=== PATIENT | female | born 1960 | race Caucasian/White ===

== ENCOUNTER → 2021-01-22 12:43 | Outpatient (CLI) | payer OTHER, SELFPAY | PROVIDERS: Visit Provider Physician Assistant | DX: J02.9 Acute pharyngitis, unspecified (principal) | CPT/HCPCS: 87070 ==

== ENCOUNTER 2023-02-10 23:37 | Observation (INO) | payer OTHER, SELFPAY ==
[2023-02-10 23:40] VITALS: BP 119/67; PULSE 106; O2SAT 96
[2023-02-10 23:43] VITALS: BP 119/67; PULSE 105; RESP 18; TEMP 36.7; O2SAT 96; BMI 36.6
[2023-02-10] MEDS: SODIUM CHLORIDE 0.9% 1,000 ML 1000 ML IV (23:48)
[2023-02-10 23:57] LABS: Add Manual Diff / Slide Review NO; Basophils Absolute Auto 0 /uL (0-100); Basophils Percent Auto 0.3 % (0-2); Eosinophils Absolute Auto 100 /uL (0-450); Eosinophils Percent Auto 0.7 % (2-4); Hematocrit 36.4 % (36-46); Hemoglobin 12.5 g/dL (12.0-16.0); Lymphocytes Absolute Auto 4700 /uL (1100-4500); Lymphocytes Percent Auto 41.6 % (25-40); Mean Corpuscular HGB Conc 34.4 % (30-36); Mean Corpuscular Hemoglobin 29.4 PG (26-34); Mean Corpuscular Volume 85.4 fL (80-100); Monocytes Absolute Auto 1100 /uL (0-900); Monocytes Percent Auto 9.9 % (3-14); Neutrophils Absolute Auto 5300 /uL (1500-7000); Neutrophils Percent Auto 47.5 % (50-75); Platelet Count 343 X10^3/uL (150-400); Red Blood Cell Count 4.26 X10^6/uL (4.0-5.2); Red Cell Distribution Width 13.6 % (11.6-14.8); White Blood Cell Count 11.2 X10^3/uL (4.5-11.0)
[2023-02-11] VITALS (28 sets, daily range): BP systolic 83–158; BP diastolic 49–93; PULSE 104–129; RESP 9–26; TEMP 35.9–37.6; O2SAT 94–100; BMI 37.7
[2023-02-11 00:11] LABS: Alanine Aminotransferase 21 IU/L (<35); Albumin Globulin Ratio 1.5 (1.0-2.8); Alkaline Phosphatase 50 U/L (38-126); Aspartate Aminotransferase 22 IU/L (14-36); BUN Creatinine Ratio 51.8 (6-22); Bilirubin Total 0.3 mg/dL (0.2-1.3); Blood Urea Nitrogen 29 mg/dL (7-17); Calcium 9.4 mg/dL (8.4-10.2); Carbon Dioxide 26 mmol/L (22-32); Chloride 106 mmol/L (98-107); Creatine Kinase 28 U/L (30-135); Estimated Glomerular Filt Rate > 60 mL/min (>60); Ethanol (ETOH) < 10 mg/dL; Globulin 2.6 g/dL (1.7-4.1); Glucose 102 mg/dL (80-110); HEMOLYSIS 16 (0-50); Lipase 61 U/L (23-300); Potassium 3.5 mmol/L (3.4-5.1); Sodium 140 mmol/L (137-145); Total Protein 6.6 g/dL (6.3-8.2)
--- NOTE | 2023-02-11 00:16 | ED_ITS ---
HPI - General Adult General Chief complaint: Syncope Stated complaint: syncope Time Seen by Provider: 02/10/23 23:44 Source: patient, family and EMS Mode of arrival: EMS Limitations: no limitations History of Present Illness HPI narrative: Patient is a 62-year-old female who was brought in by EMS for evaluation of a syncopal episode. The episode that brought her into the emergency department happened just prior to arrival. She states she was sitting on the toilet. She had a bowel movement. She stood up and went and washed her hands. She states she started to feel like she was getting lightheaded and was going to pass out. She sat herself down onto ground. She did not pass out. She did not hurt herse lf. She had no chest pain or shortness of breath or lightheadedness. She stated that she called for her who came to help her off the floor. She then walked down the hallway to go to the bedroom when apparently she had a full syncopal episode. She was helped to the ground by her . Again she stated that she did not feel like she was having chest pain shortness of breath nor lightheadedness or headaches. She states she woke up and hurt her talking on the phone. When EMS arrived they stated that they found her hypotensive with systolic in the 80s. They did start her on fluids. By the time she arrived here in the emergency department she stated that she was feeling quite normal. She did admit that she had another episode earlier in the day where she felt like she was going to pass out. She was able to make it to the bed for she actually lost consciousness. She laid in the bed for awhile and then felt much better afterwards. This has never happened to her in the past. She stated that today she did have several episodes of black colored stools. She is never had black-colored stools before. She is not vomiting. No blood in her urine. She denies the use of alcohol. Does not use nonsteroidal anti- inflammatories. Is not on anticoagulation. She has had a colonoscopy in the past. That was within the past 5 years. She was told to return in 5 years for repeat colonoscopy. Related Data Home Medications Medication Instructions Recorded Confirmed ascorbic acid (vitamin C) 500 mg 500 mg PO QDAY ##0 09/18/17 11/02/21 tablet aspirin 81 mg tablet,delayed 81 mg PO QDAY ##0 05/18/17 07/02/21 release calcium citrate 315 mg 1 tab PO ##0 05/18/17 07/02/21 calcium-vitamin D3 6.25 mcg (250 unit) tablet (Citracal + Vitamin D Maximum) cholecalciferol (vitamin D3) 50 1 tab PO QDAY ##0 05/18/17 07/02/21 mcg (2,000 unit) tablet (Vitamin D3) multivitamin (Multiple Vitamins 1 tab PO QDAY ##0 05/18/17 07/02/21 tablet) valsartan 160 1 tab PO QDAY ##0 05/18/17 07/02/21 mg-hydrochlorothiazide 12.5 mg tablet sertraline 50 mg tablet 50 mg PO DAILY 01/22/21 07/02/21 Previous Rx's Medication Instructions Recorded magic mouthwash 10 ml PO TID aphthous ulcers #150 01/22/21 mL Allergies Allergy/AdvReac Type Severity Reaction Status Date / Time Sulfa (Sulfonamide Allergy Unknown Verified 02/11/23 02:49 Antibiotics) [SULFA (SULFONAMIDE ANTIBIOTICS)] Review of Systems Review of Systems ROS Unobtainable: All systems reviewed & are unremarkable except as noted in HPI and below Patient History Social History Smoking Status: Never smoker Smoking Status: Never smoker alcohol intake frequency: holidays/special occasions only Substance Use Type: does not use Exam Initial Vital Signs Initial Vital Signs: Vital Signs Temperature 98.1 F 02/10/23 23:43 Pulse Rate 105 H 02/10/23 23:43 Respiratory Rate 18 02/10/23 23:43 Blood Pressure 119/67 02/10/23 23:43 Pulse Oximetry 96 02/10/23 23:43 Oxygen Delivery Method Room Air 02/10/23 23:43 Const General: cooperative, comfortable and No ill appearing HENMT Head: normal to inspection and normocephalic Resp Effort & Inspection: normal respiratory effort Auscultation: clear to auscultation bilaterally Cardio Rate: tachycardic Rhythm: regular rhythm GI Inspection: normal to inspection and non-distended Palpation: soft and No tender Rectal Exam: heme positive stool Skin General: no rashes or lesions noted Neuro General: patient alert, patient awake, patient oriented x3 and moves all extremities Cognition: normal cognition Speech: speech normal Extrem General: normal to inspection and capillary refill normal Psych Appearance: grossly normal and well kempt Scores GCS Ulises coma scale eye opening: Spontaneous Ulises coma scale verbal response: Orientated Ulises coma scale motor response: Obey commands [place] coma scale total score: 15 Course Orders Ordered: ED Orders 02/10/23 23:40 Complete Blood Count AUTO DIFF Stat Comprehensive Metabolic Panel Stat Ethanol (ETOH) Stat Lipase Stat Troponin & CK Cardiac Panel Stat 02/10/23 23:45 EKG-12 Lead Stat 02/11/23 00:06 Magnesium Stat 02/11/23 00:38 EKG-12 Lead Stat 02/11/23 01:50 Hemoglobin and Hematocrit Stat Troponin & CK Cardiac Panel Stat 02/11/23 02:20 Type and Screen Stat 02/11/23 02:35 Consult to General Surgery Stat Acetaminophen (Acetaminophen 325 Mg Tablet) 650 mg PO Q6H PRN PRN Reason: Fever/Mild Pain (1-3) Dextrose/Sodium Chloride (Dextrose 5%-0.9% Ns) 1,000 mls @ 100 mls/hr IV CONT LEVY Naloxone HCl (Naloxone 0.4 Mg/Ml Vial) 0.2 mg IV Q2MIN PRN PRN Reason: Opiate Reversal Ondansetron HCl (Ondansetron 4 Mg/2 Ml Inj) 4 mg IV Q8HR PRN PRN Reason: Nausea And Vomiting Pantoprazole Sodium (Pantoprazole 40 Mg Vial) 40 mg IV BID LEVY Discontinued Medications Sodium Chloride (Normal Saline 0.9%) 1,000 mls @ 1,000 mls/hr IV BOLUS ONE Stop: 02/11/23 00:43 Last Infusion: 02/11/23 00:41 Dose: 0 mls/hr Documented By: Admin: 02/10/23 23:48 Dose: 1,000 mls/hr Documented By: CATHY Sodium Chloride (Normal Saline 0.9%) 1,000 mls @ 1,000 mls/hr IV BOLUS ONE Stop: 02/11/23 02:21 Last Infusion: 02/11/23 02:37 Dose: 0 mls/hr Documented By: Admin: 02/11/23 01:27 Dose: 1,000 mls/hr Documented By: CATHY Pantoprazole Sodium (Pantoprazole 40 Mg Vial) 40 mg IV NOW ONE Stop: 02/11/23 02:21 Last Admin: 02/11/23 02:48 Dose: 40 mg Documented By: CATHY Vital Signs Vital signs: Vital Signs - 8 hr 02/10/23 23:43 Temperature 98.1 F Pulse Rate 105 H Respiratory Rate 18 Blood Pressure 119/67 Pulse Oximetry 96 Oxygen Delivery Method Room Air Medical Decision Making Lab Data Lab results reviewed: Yes I reviewed the patient's lab results. 02/11/23 01:50 02/10/23 23:40 Labs: Lab Results 02/10/23 02/10/23 02/10/23 Range/Units 23:40 23:40 23:40 WBC 11.2 H (4.5-11.0) X10^3/uL RBC 4.26 (4.0-5.2) X10^6/uL Hgb 12.5 (12.0-16.0) g/dL Hct 36.4 (36-46) % MCV 85.4 (80-100) fL MCH 29.4 (26-34) PG MCHC 34.4 (30-36) % RDW 13.6 (11.6-14.8) % Plt Count 343 (150-400) X10^3/uL Neut % (Auto) 47.5 L (50-75) % Lymph % (Auto) 41.6 H (25-40) % [place] % (Auto) 9.9 (3-14) % Eos % (Auto) 0.7 L (2-4) % Baso % (Auto) 0.3 (0-2) % Neut # (Auto) 5300 (8675-9293) /uL Lymph # (Auto) 4700 H (0475-3753) /uL [place] # (Auto) 1100 H (0-900) /uL Eos # (Auto) 100 (0-450) /uL Baso # (Auto) 0 (0-100) /uL Sodium 140 (137-145) mmol/L Potassium 3.5 (3.4-5.1) mmol/L Chloride 106 (98-107) mmol/L Carbon Dioxide 26 (22-32) mmol/L BUN 29 H (7-17) mg/dL Creatinine 0.56 (0.52-1.04) mg/dL Estimated GFR > 60 (>60) mL/min BUN/Creatinine Ratio 51.8 H (6-22) Glucose 102 (80-110) mg/dL Calcium 9.4 (8.4-10.2) mg/dL Magnesium 2.0 (1.6-2.3) mg/dL Total Bilirubin 0.3 (0.2-1.3) mg/dL AST 22 (14-36) IU/L ALT 21 (<35) IU/L Alkaline Phosphatase 50 (38-126) U/L Total Creatine Kinase 28 L (30-135) U/L CK-MB (CK-2) TNP CK-MB (CK-2) Rel Index TNP Troponin I 0.013 (0.01-0.034) ng/mL Total Protein 6.6 (6.3-8.2) g/dL Albumin 4.0 (3.5-5.0) g/dL Globulin 2.6 (1.7-4.1) g/dL Albumin/Globulin Ratio 1.5 (1.0-2.8) Lipase 61 (23-300) U/L Ethyl Alcohol < 10 ( - 10) mg/dL Blood Type Antibody Screen 02/11/23 02/11/23 02/11/23 Range/Units 01:50 01:50 02:20 WBC (4.5-11.0) X10^3/uL RBC (4.0-5.2) X10^6/uL Hgb 9.9 L (12.0-16.0) g/dL Hct 29.0 L (36-46) % MCV (80-100) fL MCH (26-34) PG MCHC (30-36) % RDW (11.6-14.8) % Plt Count (150-400) X10^3/uL Neut % (Auto) (50-75) % Lymph % (Auto) (25-40) % [place] % (Auto) (3-14) % Eos % (Auto) (2-4) % Baso % (Auto) (0-2) % Neut # (Auto) (1620-4469) /uL Lymph # (Auto) (6878-7115) /uL [place] # (Auto) (0-900) /uL Eos # (Auto) (0-450) /uL Baso # (Auto) (0-100) /uL Sodium (137-145) mmol/L Potassium (3.4-5.1) mmol/L Chloride (98-107) mmol/L Carbon Dioxide (22-32) mmol/L BUN (7-17) mg/dL Creatinine (0.52-1.04) mg/dL Estimated GFR (>60) mL/min BUN/Creatinine Ratio (6-22) Glucose (80-110) mg/dL Calcium (8.4-10.2) mg/dL Magnesium (1.6-2.3) mg/dL Total Bilirubin (0.2-1.3) mg/dL AST (14-36) IU/L ALT (<35) IU/L Alkaline Phosphatase (38-126) U/L Total Creatine Kinase 21 L (30-135) U/L CK-MB (CK-2) TNP CK-MB (CK-2) Rel Index TNP Troponin I 0.013 (0.01-0.034) ng/mL Total Protein (6.3-8.2) g/dL Albumin (3.5-5.0) g/dL Globulin (1.7-4.1) g/dL Albumin/Globulin Ratio (1.0-2.8) Lipase (23-300) U/L Ethyl Alcohol ( - 10) mg/dL Blood Type O Positive Antibody Screen Negative Point of Care Testing Stool Occult Blood Positive Glucose POC 120 Point of care testing: Point of Care Testing Stool Occult Blood Positive Glucose POC 120 ECG Data Attestation: I personally reviewed and interpreted this ECG as follows: Interpretation: Sinus tachycardia Ventricular rate of 110 Normal axis Normal QRS QTC [address] T wave changes Repeat EKG Sinus tachycardia Ventricular rate 114 Normal axis Normal QRS QTC [address] T wave changes MDM Narrative Medical decision making narrative: Patient was tachycardic upon arrival. This is sinus tachycardia. She was not hypotensive. She was feeling rather normal upon arrival here to the ER. Initial H&H is unremarkable. Repeat H&H does show a drop. She did receive 1 L of fluids during this time. She was Hemoccult positive. Initial EKG shows sinus tachycardia and a prolonged QTC of 633. Patient is not on any medications that would prolong her QTC. Repeat EKG was performed in the repeat QTC was 463. Patient remained persistently tachycardic. She was alert oriented. I have low suspicion that this was seizure. Also low suspicion for CVA/TIA or ACS. I did discuss the case with Dr. Prieto on-call with General surgery who asked the patient be admitted to the medicine service and she would consult for upper endoscopy. I then discussed the case with Dr. Campo hospitalist on-call who will admit for further evaluation and treatment. I did discuss the need for admission with the patient. She expressed understanding and agreement as well. Patient's was at bedside and did provide some of the HPI. Discharge Plan Departure Patient Disposition: Admitted As Inpatient Clinical Impression: Acute GI bleeding, Syncope, Tachycardia Admit Date/Time: 02/11/23 02:55 Admit Provider: Mikhail Campo
[2023-02-11 00:22] LABS: Troponin I 0.013 ng/mL (0.01-0.034)
[2023-02-11] MEDS: SODIUM CHLORIDE 0.9% 1,000 ML 1000 ML IV (01:27)
[2023-02-11 02:01] LABS: Hemoglobin 9.9 g/dL (12.0-16.0)
[2023-02-11 02:11] LABS: Creatine Kinase 21 U/L (30-135)
[2023-02-11 02:23] LABS: Troponin I 0.013 ng/mL (0.01-0.034)
--- NOTE | 2023-02-11 02:35 | PC.NURSE ---
Occult blood positive [facility] +. lot #[id number] exp 10/2025, Card lot#[id number] exp 07/2024
[2023-02-11] MEDS: PANTOPRAZOLE 40 MG VIAL IV ×2 (02:48→11:01)
--- NOTE | 2023-02-11 03:17 | PM.HP.1 ---
History of Present Illness History of Present Illness Date Patient Seen: 02/11/23 Time Patient Seen: 03:18 Date of Onset of Symptoms: 02/10/23 Chief complaint: syncope Narrative: The patient is a 62-year-old female with a history of hypertension who developed multiple episodes of black tarry stool throughout the day today. She then had a near syncopal episode prompting a visit to the emergency department. Here she was found to be within normal blood pressure but tachycardic. The patient did have a colonoscopy 3 years ago revealing polyps and diverticuli with a repeat recommended 5 years after. Her repeat hemoglobin was 9.9 after fluid this morning. The patient has never had issues with gastrointestinal bleeding before. She denies ingestion of nonsteroidal anti-inflammatories. She uses Tylenol only for pain relief. She has never had an ulcer before. She did not today, vomiting or abdominal pain. Emergency physician discussed with Dr. Prieto who will see the patient in the morning for probable EGD, and possibly a delayed colonoscopy. [facility] Social History Smoking Status: Never smoker Comment: Medical history of hypertension. Family history is notable for pancreatic father. Social history is notable for living in [facility] with her . Rare alcohol and no tobacco use. Meds Home Medications and Allergies Home Medications Medication Instructions Recorded Confirmed Type ascorbic acid (vitamin C) 500 mg 500 mg PO QDAY ##0 05/18/17 07/02/21 History tablet aspirin 81 mg tablet,delayed 81 mg PO QDAY ##0 05/18/17 07/02/21 History release calcium citrate 315 mg 1 tab PO ##0 05/18/17 07/02/21 History calcium-vitamin D3 6.25 mcg (250 unit) tablet (Citracal + Vitamin D Maximum) cholecalciferol (vitamin D3) 50 1 tab PO QDAY ##0 05/18/17 07/02/21 History mcg (2,000 unit) tablet (Vitamin D3) multivitamin (Multiple Vitamins 1 tab PO QDAY ##0 05/18/17 07/02/21 History tablet) valsartan 160 1 tab PO QDAY ##0 05/18/17 07/02/21 History mg-hydrochlorothiazide 12.5 mg tablet magic mouthwash 10 ml PO TID aphthous ulcers #150 01/22/21 07/02/21 Rx mL sertraline 50 mg tablet 50 mg PO DAILY 01/22/21 07/02/21 History Allergies Allergy/AdvReac Type Severity Reaction Status Date / Time Sulfa (Sulfonamide Allergy Unknown Verified 02/11/23 02:49 Antibiotics) [SULFA (SULFONAMIDE ANTIBIOTICS)] Review of Systems Review of Systems Narrative: No nausea or vomiting. No chest pain or palpitations. No dyspnea. No complete syncope. No prior history of melena. She denies any urinary symptoms. All else reviewed and otherwise is negative. Exam Vital Signs (past 8 hours): - 02/10/23 23:43 Temperature 98.1 F Pulse Rate 105 H Respiratory Rate 18 Blood Pressure 119/67 Pulse Oximetry 96 Oxygen Delivery Method Room Air Oxygen Delivery Method Room Air Const Other: No acute distress. Fluent speech. HENMT Other: Normal mouth, atraumatic skull. Eyes Other: Anicteric sclera, and Symmetric pupils. Neck Other: Normal range of motion. No adenopathy Resp Other: Clear to auscultation with normal effort, no wheezing. Cardio Other: The heart is regular, without murmur or gallop. Other: The abdomen is distended, and nontender. No organomegaly Skin Other: No rash, lesions or itching. Neuro Other: Normal speech, no facial droop. Moves all extremities without difficulty. Extrem Other: No edema of arms or legs. Psych Other: Normal affect and content of conversation Objective ECG Impression: Sinus tachycardia Labs 02/11/23 01:50 02/10/23 23:40 Labs: Laboratory Results - last 24 hr 02/10/23 02/10/23 02/10/23 23:40 23:40 23:40 WBC 11.2 H RBC 4.26 Hgb 12.5 Hct 36.4 MCV 85.4 MCH 29.4 MCHC 34.4 RDW 13.6 Plt Count 343 Neut % (Auto) 47.5 L Lymph % (Auto) 41.6 H [place] % (Auto) 9.9 Eos % (Auto) 0.7 L Baso % (Auto) 0.3 Neut # (Auto) 5300 Lymph # (Auto) 4700 H [place] # (Auto) 1100 H Eos # (Auto) 100 Baso # (Auto) 0 Sodium 140 Potassium 3.5 Chloride 106 Carbon Dioxide 26 BUN 29 H Creatinine 0.56 Estimated GFR > 60 BUN/Creatinine Ratio 51.8 H Glucose 102 Calcium 9.4 Magnesium 2.0 Total Bilirubin 0.3 AST 22 ALT 21 Alkaline Phosphatase 50 Total Creatine Kinase 28 L CK-MB (CK-2) TNP CK-MB (CK-2) Rel Index TNP Troponin I 0.013 Total Protein 6.6 Albumin 4.0 Globulin 2.6 Albumin/Globulin Ratio 1.5 Lipase 61 Ethyl Alcohol < 10 Blood Type Antibody Screen 02/11/23 02/11/23 02/11/23 01:50 01:50 02:20 WBC RBC Hgb 9.9 L Hct 29.0 L MCV MCH MCHC RDW Plt Count Neut % (Auto) Lymph % (Auto) [place] % (Auto) Eos % (Auto) Baso % (Auto) Neut # (Auto) Lymph # (Auto) [place] # (Auto) Eos # (Auto) Baso # (Auto) Sodium Potassium Chloride Carbon Dioxide BUN Creatinine Estimated GFR BUN/Creatinine Ratio Glucose Calcium Magnesium Total Bilirubin AST ALT Alkaline Phosphatase Total Creatine Kinase 21 L CK-MB (CK-2) TNP CK-MB (CK-2) Rel Index TNP Troponin I 0.013 Total Protein Albumin Globulin Albumin/Globulin Ratio Lipase Ethyl Alcohol Blood Type O Positive Antibody Screen Negative Assessment & Plan Assessment & Plan narrative: -Upper GI bleed with melena, present on admission and active. We will trend hemoglobin every 4 hours, Protonix 40 IV q.12 hours. Surgical consult for EGD later this AM. Continue the IV fluids. Blood transfusion if she is under the threshold of hemoglobin of 7. -Essential hypertension, present on admission and active. Will hold blood pressure medication while we assess her clinical stability over the next 6 to 12 hours. She is full resuscitation Will use mechanical DVT prophylaxis, contraindication to pharmacologic prophylaxis is GI bleeding. Time Spent With Patient Time with patient: 30 to 49 minutes with 50% spent counseling/coordinating care
[2023-02-11 03:32] LABS: INR 1.1 (0.9-1.3); Prothrombin Time 12.5 SECONDS (10.1-12.7)
[2023-02-11 03:58] LABS: Add Manual Diff / Slide Review NO; Basophils Absolute Auto 0 /uL (0-100); Basophils Percent Auto 0.5 % (0-2); Eosinophils Absolute Auto 0 /uL (0-450); Eosinophils Percent Auto 0.3 % (2-4); Hematocrit 28.4 % (36-46); Hemoglobin 9.9 g/dL (12.0-16.0); Lymphocytes Absolute Auto 1900 /uL (1100-4500); Lymphocytes Percent Auto 19.1 % (25-40); Mean Corpuscular HGB Conc 34.9 % (30-36); Mean Corpuscular Hemoglobin 29.7 PG (26-34); Mean Corpuscular Volume 85.1 fL (80-100); Monocytes Absolute Auto 500 /uL (0-900); Monocytes Percent Auto 4.9 % (3-14); Neutrophils Absolute Auto 7500 /uL (1500-7000); Neutrophils Percent Auto 75.2 % (50-75); Platelet Count 262 X10^3/uL (150-400); Red Blood Cell Count 3.34 X10^6/uL (4.0-5.2); Red Cell Distribution Width 13.6 % (11.6-14.8)
[2023-02-11 04:09] LABS: BUN Creatinine Ratio 57.1 (6-22); Blood Urea Nitrogen 32 mg/dL (7-17); Calcium 8.2 mg/dL (8.4-10.2); Carbon Dioxide 26 mmol/L (22-32); Chloride 109 mmol/L (98-107); Estimated Glomerular Filt Rate > 60 mL/min (>60); Glucose 121 mg/dL (80-110); HEMOLYSIS < 15 (0-50); Potassium 4.1 mmol/L (3.4-5.1); Sodium 141 mmol/L (137-145)
[2023-02-11] MEDS: DEXTROSE 5%-0.9% NS 1,000 ML 100 ML IV (04:20)
--- NOTE | 2023-02-11 07:49 | P.CONS_ITS ---
History of Present Illness Consult details Date Patient Seen: 02/11/23 Time Patient Seen: 07:49 Chief complaint: syncope Reason for consult: GI bleed Requesting provider: Janet Torres Narrative: Sudden onset dark stools, 2 episodes of syncope yesterday prior to arrival , no emesis or BRBPR, no pain. Meds Home Medications and Allergies Home Medications Medication Instructions Recorded Confirmed Type ascorbic acid (vitamin C) 500 mg 500 mg PO QDAY ##0 05/18/17 02/11/23 History tablet aspirin 81 mg tablet,delayed 81 mg PO QDAY ##0 05/18/17 02/11/23 History release calcium citrate 315 mg 1 tab PO 1XD ##0 05/18/17 02/11/23 History calcium-vitamin D3 6.25 mcg (250 unit) tablet (Citracal + Vitamin D Maximum) cholecalciferol (vitamin D3) 50 1 tab PO QDAY ##0 05/18/17 02/11/23 History mcg (2,000 unit) tablet (Vitamin D3) multivitamin (Multiple Vitamins 1 tab PO QDAY ##0 05/18/17 02/11/23 History tablet) valsartan 160 1 tab PO QDAY ##0 05/18/17 02/11/23 History mg-hydrochlorothiazide 12.5 mg tablet magic mouthwash 10 ml PO TID aphthous ulcers #150 01/22/21 02/11/23 Rx mL sertraline 50 mg tablet 50 mg PO DAILY 01/22/21 02/11/23 History Allergies Allergy/AdvReac Type Severity Reaction Status Date / Time Sulfa (Sulfonamide Allergy Unknown Verified 02/11/23 02:49 Antibiotics) [SULFA (SULFONAMIDE ANTIBIOTICS)] Review of Systems Review of Systems ROS: Yes All systems reviewed with the patient and are negative except as otherwise documented Exam Vital Signs (past 8 hours): - 02/11/23 00:00 02/11/23 00:00 02/11/23 00:30 Temperature Pulse Rate 104 H Respiratory Rate Blood Pressure 155/74 H 158/80 H Pulse Oximetry 95 Oxygen Delivery Method 02/11/23 00:30 02/11/23 01:00 02/11/23 01:00 Temperature Pulse Rate 113 H 120 H Respiratory Rate Blood Pressure 153/75 H Pulse Oximetry 95 96 Oxygen Delivery Method 02/11/23 01:30 02/11/23 01:30 02/11/23 02:00 Temperature Pulse Rate 114 H Respiratory Rate 13 Blood Pressure 142/74 H 140/79 Pulse Oximetry 95 Oxygen Delivery Method 02/11/23 02:00 02/11/23 02:30 02/11/23 02:30 Temperature Pulse Rate 112 H 113 H Respiratory Rate 11 L 9 L Blood Pressure 126/68 Pulse Oximetry 97 97 Oxygen Delivery Method 02/11/23 03:00 02/11/23 03:30 02/11/23 04:00 Temperature Pulse Rate 116 H 123 H 124 H Respiratory Rate 16 26 H 18 Blood Pressure Pulse Oximetry 98 95 94 Oxygen Delivery Method 02/11/23 04:30 02/11/23 05:09 02/11/23 04:18 Temperature 96.6 F L Pulse Rate 114 H 125 H Respiratory Rate 25 H 18 Blood Pressure 107/63 Pulse Oximetry 95 98 Oxygen Delivery Method Room Air 02/11/23 07:06 Temperature Pulse Rate 121 H Respiratory Rate 18 Blood Pressure 94/54 L Pulse Oximetry 94 Oxygen Delivery Method Oxygen Delivery Method Room Air Const General: cooperative and comfortable Nutritional Appearance: overweight HENNV Head: normocephalic and atraumatic Eyes General: appearance normal, both eyes and all related structures Sclera: sclerae normal Neck Neck: trachea midline Resp Effort & Inspection: normal respiratory effort and able to speak in complete sentences Cardio Rate: tachycardic Rhythm: regular rhythm GI Palpation: soft Other: non tender Skin General: atrophy and pallor Neuro General: patient alert, patient awake and patient oriented x3 Speech: speech normal Psych Mental Status: mental status grossly normal Judgment: judgment good Objective Labs 02/11/23 03:50 02/11/23 03:50 Labs: Laboratory Results - last 24 hr 02/10/23 02/10/23 02/10/23 23:40 23:40 23:40 WBC 11.2 H RBC 4.26 Hgb 12.5 Hct 36.4 MCV 85.4 MCH 29.4 MCHC 34.4 RDW 13.6 Plt Count 343 Neut % (Auto) 47.5 L Lymph % (Auto) 41.6 H [place] % (Auto) 9.9 Eos % (Auto) 0.7 L Baso % (Auto) 0.3 Neut # (Auto) 5300 Lymph # (Auto) 4700 H [place] # (Auto) 1100 H Eos # (Auto) 100 Baso # (Auto) 0 PT INR Sodium 140 Potassium 3.5 Chloride 106 Carbon Dioxide 26 BUN 29 H Creatinine 0.56 Estimated GFR > 60 BUN/Creatinine Ratio 51.8 H Glucose 102 Calcium 9.4 Magnesium 2.0 Total Bilirubin 0.3 AST 22 ALT 21 Alkaline Phosphatase 50 Total Creatine Kinase 28 L CK-MB (CK-2) TNP CK-MB (CK-2) Rel Index TNP Troponin I 0.013 Total Protein 6.6 Albumin 4.0 Globulin 2.6 Albumin/Globulin Ratio 1.5 Lipase 61 Ethyl Alcohol < 10 Blood Type Antibody Screen 02/10/23 02/11/23 02/11/23 23:40 01:50 01:50 WBC RBC Hgb 9.9 L Hct 29.0 L MCV MCH MCHC RDW Plt Count Neut % (Auto) Lymph % (Auto) [place] % (Auto) Eos % (Auto) Baso % (Auto) Neut # (Auto) Lymph # (Auto) [place] # (Auto) Eos # (Auto) Baso # (Auto) PT 12.5 INR 1.1 Sodium Potassium Chloride Carbon Dioxide BUN Creatinine Estimated GFR BUN/Creatinine Ratio Glucose Calcium Magnesium Total Bilirubin AST ALT Alkaline Phosphatase Total Creatine Kinase 21 L CK-MB (CK-2) TNP CK-MB (CK-2) Rel Index TNP Troponin I 0.013 Total Protein Albumin Globulin Albumin/Globulin Ratio Lipase Ethyl Alcohol Blood Type Antibody Screen 02/11/23 02/11/23 02/11/23 02:20 03:50 03:50 WBC 10.0 RBC 3.34 L Hgb 9.9 L Hct 28.4 L MCV 85.1 MCH 29.7 MCHC 34.9 RDW 13.6 Plt Count 262 Neut % (Auto) 75.2 H D Lymph % (Auto) 19.1 L D [place] % (Auto) 4.9 Eos % (Auto) 0.3 L Baso % (Auto) 0.5 Neut # (Auto) 7500 H Lymph # (Auto) 1900 [place] # (Auto) 500 Eos # (Auto) 0 Baso # (Auto) 0 PT INR Sodium 141 Potassium 4.1 Chloride 109 H Carbon Dioxide 26 BUN 32 H Creatinine 0.56 Estimated GFR > 60 BUN/Creatinine Ratio 57.1 H Glucose 121 H Calcium 8.2 L Magnesium Total Bilirubin AST ALT Alkaline Phosphatase Total Creatine Kinase CK-MB (CK-2) CK-MB (CK-2) Rel Index Troponin I Total Protein Albumin Globulin Albumin/Globulin Ratio Lipase Ethyl Alcohol Blood Type O Positive Antibody Screen Negative PFSH Social History household members: spouse Tobacco & Substance Use Smoking Status: Never smoker Assessment & Plan Assessment & Plan narrative: Likely upper GI bleed. Plan: Diagnostic EGD with general anesthesia
[2023-02-11] MEDS: LACTATED RINGERS 1,000 ML 150 ML IV ×2 (08:00→09:44)
--- NOTE | 2023-02-11 08:33 | PM.OP.EGD ---
Operative Date/Time/Diagnoses Date of procedure: 02/11/23 Time of procedure: 08:33 Pre-op diagnosis: GI bleed Post-op diagnosis: same Procedure & Clinicians Study performed: EGD Same procedure as scheduled: Yes Indications: GI bleed Surgeon: Jessenia Prieto Procedure Notes Procedure in detail: Preop diagnosis: GI bleed Postop diagnosis: Same Operative procedure: EGD with general anesthesia Surgeon: Lisa Prieto MD Findings: Gastric ulcer with clot and no active bleeding. Located in the distal greater curve. Duodenum and esophagus are within normal limits. One lipoma in the proximal portion of the stomach approximately 3 cm in size. No hiatal hernia Procedure: Patient placed in lateral position. Anesthetic was provided. Scope was inserted into the esophagus advanced to the stomach with insufflation and suctioning of retained material in the stomach from what is likely slow gastric emptying, I was able to intubate into the duodenum. First 2nd and 3rd portions of duodenum without abnormalities except for slight duodenitis in the 1st portion. Gastric ulcer as described above covered with clot, no active bleeding. Discrete size not able to evaluate due to retained fluid and clot, however it is certainly less than 3 cm in diameter. Scope was withdrawn including retroflexed with the above findings Impression: Gastric ulcer benign in appearance along with a 3 cm proximal lipoma. Lipomas causing no adverse effects. Plan: B.i.d. Protonix 40 mg for 6-8 weeks minimum. Then Protonix 20 mg p.o. daily. Follow up with her primary care physician Findings: gastric ulcer Specimen(s): none sent Complications: none Impression: Gastric ulcer, no active bleeding, ulcers benign in appearance unless than 3 cm in size Post-procedure Recommendations: Prescription for (Protonix 40 mg p.o. b.i.d. times 6-8 weeks then daily dosing) Follow up: as needed Disposition: PACU
--- NOTE | 2023-02-11 09:37 | SUR.PHASEI ---
Pt transferred to the floor on stretcher, pt stood and pivoted to the bed. SBAR Report provided to AC SHAE Tuttle.
[2023-02-11 10:02] LABS: Add Manual Diff / Slide Review NO; Basophils Absolute Auto 0 /uL (0-100); Basophils Percent Auto 0.3 % (0-2); Eosinophils Absolute Auto 0 /uL (0-450); Eosinophils Percent Auto 0.1 % (2-4); Hematocrit 21.6 % (36-46); Hemoglobin 7.6 g/dL (12.0-16.0); Lymphocytes Absolute Auto 1600 /uL (1100-4500); Lymphocytes Percent Auto 20.3 % (25-40); Mean Corpuscular HGB Conc 35.2 % (30-36); Mean Corpuscular Hemoglobin 30.2 PG (26-34); Mean Corpuscular Volume 85.7 fL (80-100); Monocytes Absolute Auto 600 /uL (0-900); Monocytes Percent Auto 7.2 % (3-14); Neutrophils Absolute Auto 5900 /uL (1500-7000); Neutrophils Percent Auto 72.1 % (50-75); Platelet Count 220 X10^3/uL (150-400); Red Blood Cell Count 2.52 X10^6/uL (4.0-5.2); Red Cell Distribution Width 13.4 % (11.6-14.8); White Blood Cell Count 8.1 X10^3/uL (4.5-11.0)
[2023-02-11] MEDS: LACTATED RINGERS 1,000 ML 125 ML IV (11:04)
--- NOTE | 2023-02-11 11:16 | CM.DANOTE ---
DCP Assessment: Patient is a 62 yo F here under obs status following GI bleed and an ulcer under the care of Dr. Prieto. PCP: Belén Reynoso [facility] in [place] Payer: Shannon BROWNE and self pay PRODUCT SUPPORT REPRESENTATIVE reviewed EMR. PRODUCT SUPPORT REPRESENTATIVE entered room and introduced self and role. Patient was resting and appeared A/Ox4. Patient was accompanied by , Vinnie ([phone]). Patient reported that she was likely going to d/c today. Patient reports she is independent with ADLs at baseline, does not use any DME, and drives. will transport home today. Plan: Patient will likely d/c home today with spouse in POV. CM team will continue to follow with needs. SHELL Chandra Discharge Planning/Care Management CM Discharge Assessment Start: 02/11/23 11:14 Freq: Status: Active Protocol: Document 02/11/23 11:15 (Rec: 02/11/23 11:16 [id number]) Discharge Planning Assessment Assigned Stripper Cutter Machine SHELL Chandra DPOA/Assigned Designee Name Vinnie Kincaid (spouse) Contact Information [phone] Advance Directives? No History Provided By Patient,Family Member,Medical Record Prior Living Arrangements House Household Members spouse Type of transporation used prior to Drives own vehicle admit Independent with ADL's Yes Is patient alert and oriented? Yes Barriers to Discharge No Discharge Plan Home Transportation Arrangement Spouse will transport home Whiteboard Updated in Patient Room with Yes name and ext. # of Stripper Cutter Machine Review Status In Process Next Review Type Continued Stay Review
--- NOTE | 2023-02-11 12:34 | PC.NURSE ---
Pt returned from PACU at 0925, escorted to room on stretcher, able to stand pivot to return to bed. VSS, A&Ox4, no c/o pain, SOB, nausea, abd discomfort. Pt re-oriented to room and call light, bed in low position, call light within reach, ice chips at bedside.
[2023-02-11 15:25] LABS: Add Manual Diff / Slide Review NO; Basophils Absolute Auto 0 /uL (0-100); Basophils Percent Auto 0.2 % (0-2); Eosinophils Absolute Auto 0 /uL (0-450); Eosinophils Percent Auto 0.5 % (2-4); Hematocrit 22.7 % (36-46); Hemoglobin 7.9 g/dL (12.0-16.0); Lymphocytes Absolute Auto 3400 /uL (1100-4500); Lymphocytes Percent Auto 37.2 % (25-40); Mean Corpuscular HGB Conc 34.9 % (30-36); Mean Corpuscular Hemoglobin 29.9 PG (26-34); Mean Corpuscular Volume 85.6 fL (80-100); Monocytes Absolute Auto 900 /uL (0-900); Monocytes Percent Auto 9.5 % (3-14); Neutrophils Absolute Auto 4900 /uL (1500-7000); Neutrophils Percent Auto 52.6 % (50-75); Platelet Count 229 X10^3/uL (150-400); Red Blood Cell Count 2.65 X10^6/uL (4.0-5.2); Red Cell Distribution Width 13.6 % (11.6-14.8); White Blood Cell Count 9.3 X10^3/uL (4.5-11.0)
--- NOTE | 2023-02-11 16:39 | PM.DS.1 ---
History of Present Illness History of Present Illness Date Patient Seen: 02/11/23 Time Patient Seen: 16:39 Date of Onset of Symptoms: 02/10/23 Chief complaint: syncope Narrative: Per admitting provider, The patient is a 62-year-old female with a history of hypertension who developed multiple episodes of black tarry stool throughout the day today. She then had a near syncopal episode prompting a visit to the emergency department. Here she was found to be within normal blood pressure but tachycardic. The patient did have a colonoscopy 3 years ago revealing polyps and diverticuli with a repeat recommended 5 years after. Her repeat hemoglobin was 9.9 after fluid this morning. The patient has never had issues with gastrointestinal bleeding before. She denies ingestion of nonsteroidal anti-inflammatories. She uses Tylenol only for pain relief. She has never had an ulcer before. She did not today, vomiting or abdominal pain. Emergency physician discussed with Dr. Prieto who will see the patient in the morning for probable EGD, and possibly a delayed colonoscopy. Discharge Providers Provider Date of admission: 02/11/23 02:55 Discharge Date: 02/11/23 Primary care physician: Doctor Shar MD Consults: 02/11/23 02:35 Consult to General Surgery Stat Comment: Consulting Provider: Jessenia Prieto Reason for consultation: Gi bleed Has provider been notified: Yes 02/11/23 03:16 Consult to Physician Routine Comment: Consulting Provider: Jessenia Prieto Reason for consultation: GI bleeding Has provider been notified: Yes Discharge provider: Roberto Carlos Emanuel DO Summary Hospital Course Discharge Diagnosis: 1. Acute blood loss anemia secondary to #2 2. Gastric ulcer 3. Essential hypertension Hospital Course: This is a 62 year old female with PMH of HTN who presented with melena. She underwent EGD which showed a non-bleeding gastric ulcer. Her Hg fell to 7.6 but quickly rebounded to 7.9. She was started on a PPI, and she felt well and opted for discharge home after endoscopy rather than continued observation given tachycardia though that is suspected to be due to her acute anemia which stabilized while here. She was encouraged to start iron supplementation, and continue PPI BID and follow up with PCP as soon as possible for hospital follow up after discharge. No other medication changes were recommended. She should resume home BP medications when SBP is consistently greater than 140, likely decreased now in setting of her anemia. Time Spent with Patient Time spent: Greater than 30 minutes Exam Vital Signs (past 8 hours): - 02/11/23 08:42 02/11/23 08:47 02/11/23 08:57 Temperature 97.3 F L Pulse Rate 119 H 113 H 108 H Respiratory Rate 20 21 16 Blood Pressure 90/62 92/59 L 92/49 L Pulse Oximetry 96 96 96 Oxygen Delivery Method Nasal Cannula Nasal Cannula Room Air Oxygen Flow Rate 3 3 02/11/23 09:07 02/11/23 09:12 02/11/23 09:24 Temperature 97.3 F L 97.8 F Pulse Rate 112 H 113 H 114 H Respiratory Rate 22 20 18 Blood Pressure 91/60 98/65 127/64 Pulse Oximetry 94 96 97 Oxygen Delivery Method Room Air Room Air Oxygen Flow Rate 0 02/11/23 09:54 02/11/23 10:24 02/11/23 11:24 Temperature 98 F 98.5 F 98.3 F Pulse Rate 106 H 104 H 110 H Respiratory Rate 18 18 20 Blood Pressure 130/69 97/52 L 112/71 Pulse Oximetry 98 94 98 Oxygen Delivery Method Oxygen Flow Rate 0 0 0 02/11/23 12:24 02/11/23 14:21 02/11/23 14:26 Temperature 98.3 F 99.6 F Pulse Rate 121 H 129 H 122 H Respiratory Rate 20 20 Blood Pressure 116/77 130/68 115/75 Pulse Oximetry 100 97 Oxygen Delivery Method Oxygen Flow Rate 0 0 02/11/23 16:15 Temperature 98.8 F Pulse Rate 121 H Respiratory Rate 18 Blood Pressure 136/71 Pulse Oximetry 98 Oxygen Delivery Method Oxygen Flow Rate 0 Oxygen Delivery Method Room Air Oxygen Flow Rate 0 Narrative Exam Narrative: General:? Patient is well developed and well nourished, in no distress at this time. Lungs:? CTA b/l no wheezing rhonchi or rales. Cardio:?RRR no m/r/g. Abdomen: S NT ND. Musculoskeletal:? Muscle strength and tone are equal within normal limits, no deformity. Extremities: No edema or joint effusions. No cyanosis or clubbing. Skin:? Pale,? Warm to touch,dry and intact without rashes, ulcerations or petechiae.? Neuro:? Alert and orientated,? no focal deficits Psych:? Patient has a well-kept appearance, appropriate affect, mental status attitude thought context and judgment are appropriate for age. Objective Labs 02/11/23 15:20 02/11/23 03:50 Labs: Laboratory Results - last 24 hr 02/10/23 02/10/23 02/10/23 23:40 23:40 23:40 WBC 11.2 H RBC 4.26 Hgb 12.5 Hct 36.4 MCV 85.4 MCH 29.4 MCHC 34.4 RDW 13.6 Plt Count 343 Neut % (Auto) 47.5 L Lymph % (Auto) 41.6 H [place] % (Auto) 9.9 Eos % (Auto) 0.7 L Baso % (Auto) 0.3 Neut # (Auto) 5300 Lymph # (Auto) 4700 H [place] # (Auto) 1100 H Eos # (Auto) 100 Baso # (Auto) 0 PT INR Sodium 140 Potassium 3.5 Chloride 106 Carbon Dioxide 26 BUN 29 H Creatinine 0.56 Estimated GFR > 60 BUN/Creatinine Ratio 51.8 H Glucose 102 Calcium 9.4 Magnesium 2.0 Total Bilirubin 0.3 AST 22 ALT 21 Alkaline Phosphatase 50 Total Creatine Kinase 28 L CK-MB (CK-2) TNP CK-MB (CK-2) Rel Index TNP Troponin I 0.013 Total Protein 6.6 Albumin 4.0 Globulin 2.6 Albumin/Globulin Ratio 1.5 Lipase 61 Ethyl Alcohol < 10 Blood Type Antibody Screen 02/10/23 02/11/23 02/11/23 23:40 01:50 01:50 WBC RBC Hgb 9.9 L Hct 29.0 L MCV MCH MCHC RDW Plt Count Neut % (Auto) Lymph % (Auto) [place] % (Auto) Eos % (Auto) Baso % (Auto) Neut # (Auto) Lymph # (Auto) [place] # (Auto) Eos # (Auto) Baso # (Auto) PT 12.5 INR 1.1 Sodium Potassium Chloride Carbon Dioxide BUN Creatinine Estimated GFR BUN/Creatinine Ratio Glucose Calcium Magnesium Total Bilirubin AST ALT Alkaline Phosphatase Total Creatine Kinase 21 L CK-MB (CK-2) TNP CK-MB (CK-2) Rel Index TNP Troponin I 0.013 Total Protein Albumin Globulin Albumin/Globulin Ratio Lipase Ethyl Alcohol Blood Type Antibody Screen 02/11/23 02/11/23 02/11/23 02:20 03:50 03:50 WBC 10.0 RBC 3.34 L Hgb 9.9 L Hct 28.4 L MCV 85.1 MCH 29.7 MCHC 34.9 RDW 13.6 Plt Count 262 Neut % (Auto) 75.2 H D Lymph % (Auto) 19.1 L D [place] % (Auto) 4.9 Eos % (Auto) 0.3 L Baso % (Auto) 0.5 Neut # (Auto) 7500 H Lymph # (Auto) 1900 [place] # (Auto) 500 Eos # (Auto) 0 Baso # (Auto) 0 PT INR Sodium 141 Potassium 4.1 Chloride 109 H Carbon Dioxide 26 BUN 32 H Creatinine 0.56 Estimated GFR > 60 BUN/Creatinine Ratio 57.1 H Glucose 121 H Calcium 8.2 L Magnesium Total Bilirubin AST ALT Alkaline Phosphatase Total Creatine Kinase CK-MB (CK-2) CK-MB (CK-2) Rel Index Troponin I Total Protein Albumin Globulin Albumin/Globulin Ratio Lipase Ethyl Alcohol Blood Type O Positive Antibody Screen Negative 02/11/23 02/11/23 09:45 15:20 WBC 8.1 9.3 RBC 2.52 L 2.65 L Hgb 7.6 L 7.9 L Hct 21.6 L 22.7 L MCV 85.7 85.6 MCH 30.2 29.9 MCHC 35.2 34.9 RDW 13.4 13.6 Plt Count 220 229 Neut % (Auto) 72.1 52.6 Lymph % (Auto) 20.3 L 37.2 [place] % (Auto) 7.2 9.5 Eos % (Auto) 0.1 L 0.5 L Baso % (Auto) 0.3 0.2 Neut # (Auto) 5900 4900 Lymph # (Auto) 1600 3400 [place] # (Auto) 600 900 Eos # (Auto) 0 0 Baso # (Auto) 0 0 PT INR Sodium Potassium Chloride Carbon Dioxide BUN Creatinine Estimated GFR BUN/Creatinine Ratio Glucose Calcium Magnesium Total Bilirubin AST ALT Alkaline Phosphatase Total Creatine Kinase CK-MB (CK-2) CK-MB (CK-2) Rel Index Troponin I Total Protein Albumin Globulin Albumin/Globulin Ratio Lipase Ethyl Alcohol Blood Type Antibody Screen [facility] Social History household members: spouse Smoking Status: Never smoker Discharge Plan Discharge Plan Patient Disposition: Home Provider Discharge Comment: you were admitted to the hospital with a stomach ulcer. Bleeding appeared to have stopped on endoscopy. Please follow up with PCP in the next few weeks. For now continue pantoprazole twice a day to help the stomach lining heal. Also recommend an iron supplement in the short term, take a dose every other day. Discharge orders & Medications Prescriptions: New pantoprazole 40 mg tablet,delayed release (DR/EC) 40 mg PO BID 30 Days Qty: 60 0RF ferrous gluconate 324 mg (38 mg iron) tablet 324 mg PO Q48H 60 Days Qty: 30 0RF Continued sertraline 50 mg tablet 50 mg PO DAILY multivitamin [Multiple Vitamins] 1 EACH tablet 1 tab PO QDAY Qty: 0 ascorbic acid (vitamin C) 500 MG tablet 500 mg PO QDAY Qty: 0 cholecalciferol (vitamin D3) [Vitamin D3] 2,000 UNIT tablet 1 tab PO QDAY Qty: 0 calcium citrate-vitamin D3 [Citracal + D Maximum] 1,500 MG/250 IU tablet 1 tab PO 1XD Qty: 0 Discontinued magic mouthwash liquid 10 ml PO TID Qty: 150 0RF Rx Instructions: Viscous Lidocaine: Benadryl: Maalox 1:1:1, Swish & spit valsartan-hydrochlorothiazide 160 MG/12.5 MG tablet 1 tab PO QDAY Qty: 0 aspirin 81 MG tablet,delayed release (DR/EC) 81 mg PO QDAY Qty: 0 Follow up/Referrals: Shar,Doctor, [Primary Care Provider] - Diet/Activity/Treatments Diet: Diet as Tolerated Activity: As tolerated Visit Report/Discharge Packet Instructions: DI for Gastric Ulcer Stand Alone Forms: Patient Portal/API, Stroke Signs & Symptoms Discharge Data Primary Care Provider: Doctor Shar Attending Provider: Mikhail Campo Admit Date/Time: 02/11/23 02:55 Discharges patient from system. Discharge Date/Time: 02/11/23 18:17
--- NOTE | 2023-02-11 18:15 | PC.NURSE ---
Pt discharged home at 1800, escorted off floor in wheelchair, accompanied by hospital staff. IV removed, discharge teaching provided including new medications, follow up appointments and worsening symptoms. Questions answered. Patient left floor with all belongings.
== END 2023-02-11 18:17 | disposition home or self-care (01) ==
LOC: ED 02-11 02:24 → AC 02-11 07:36
PROVIDERS: Surgery; Admitting Provider Hospitalist; Emergency Provider Emergency Medicine; Referring Provider Emergency Medicine; Visit Provider Hospitalist
PROC: 0DJ08ZZ Inspection of Upper Intestinal Tract, Via Natural or Artificial Opening Endoscopic (ICD-10-PCS; CPT 43235; principal; 2023-02-11 08:00)
DX: K25.9 Gastric ulcer, unspecified as acute or chronic, without hemorrhage or perforation (principal); K92.1 Melena; D62 Acute posthemorrhagic anemia; R00.0 Tachycardia, unspecified; I10 Essential (primary) hypertension
CPT/HCPCS: 43235; 36415; 80048; 80053; 80320; 82272; 82550; 82553; 82962; 83690; 83735; 84484; 85014; 85018; 85025; 85610; 86850; 86900; 86901; 93005; 96361; 96374; 96376; 99284; G0378; C9113; J2704